=== PATIENT | female | born 1985 | race Caucasian/White ===

== ENCOUNTER → 2016-12-18 | Outpatient (CLI) | payer OTHER ==
[~2016-12-18] MED LIST: DOCU10ELUD PO; IBUP800T23 PO; IBUP80TA PO; LANOOIN21 TOP; MOM30SS PO; PRE-TAB3 PO; PRENTAB74 PO; TYLE167L PO
[2016-12-18 14:31] LABS: BASO % 0.2 % (0.0-1.0); EOS # 0.1 K/mm3 (0.0-0.50); EOS % 1.1 % (0.0-3.0); LARGE UNSTAINED CELL # 0.1 K/mm3 (0.0-0.4); LARGE UNSTAINED CELL % 1.1 % (0.0-4.0); LYMPH # 1.7 K/mm3 (1.5-4.5); LYMPH % 19.6 % (24.0-44.0); MEAN CORPUSCULAR HEMOGLOBIN 30.7 pg (27.0-33.0); MEAN CORPUSCULAR HGB CONC 34.2 g/dl (32.0-36.5); MEAN CORPUSCULAR VOLUME 89.7 fl (80.0-96.0); MONO # 0.3 K/mm3 (0.0-0.8); MONO % 2.9 % (0.0-5.0); NEUTROPHILS # 6.4 K/mm3 (1.8-7.7); NEUTROPHILS % 75.1 % (36.0-66.0); PLATELET COUNT, AUTOMATED 144 k/mm3 (150-450); WHITE BLOOD COUNT 8.5 K/mm3 (4.0-10.0)
== END ==
LOC: M LAB 12:18
PROVIDERS: ATTEND Obstetrics & Gynecology
DX: Z36 Encounter for antenatal screening of mother (principal); Z3A.00 Weeks of gestation of pregnancy not specified
CPT/HCPCS: 36415; 82950; 85025; 86850; 86901; J2790

== ENCOUNTER → 2016-12-29 | Outpatient (CLI) | payer OTHER | LOC: M LAB 09:00 | PROVIDERS: ATTEND Obstetrics & Gynecology | DX: Z34.82 Encounter for supervision of other normal pregnancy, second trimester (principal) ==

== ENCOUNTER → 2017-01-13 | Outpatient (CLI) | payer OTHER ==
[2017-01-13 13:16] LABS: MEAN CORPUSCULAR VOLUME 91.2 fl (80.0-96.0); RED CELL DISTRIBUTION WIDTH 13.6 % (11.5-14.5); WHITE BLOOD COUNT 10.9 K/mm3 (4.0-10.0)
[2017-01-13 14:23] LABS: ALT/SGPT 15 U/L (12-78); AST/SGOT 10 U/L (15-37); BILIRUBIN,TOTAL 0.4 MG/DL (0.2-1.0); CREATININE FOR GFR 0.47 MG/DL (0.55-1.02); GLOMERULAR FILTRATION RATE > 60.0 (>60); URIC ACID 2.7 MG/DL (2.6-6.0)
== END ==
LOC: M LAB 12:28
PROVIDERS: ATTEND Advanced Practice Midwife
DX: R03.0 Elevated blood-pressure reading, without diagnosis of hypertension (principal)

== ENCOUNTER → 2017-02-26 | Outpatient (REF) | payer OTHER | LOC: M LAB REF 16:29 | PROVIDERS: ATTEND Advanced Practice Midwife | DX: Z36 Encounter for antenatal screening of mother (principal); Z3A.00 Weeks of gestation of pregnancy not specified ==

== ENCOUNTER → 2017-02-28 | Outpatient (CLI) | payer OTHER ==
[2017-02-28 13:21] LABS: MEAN CORPUSCULAR HEMOGLOBIN 30.7 pg (27.0-33.0); MEAN CORPUSCULAR VOLUME 90.2 fl (80.0-96.0); RED CELL DISTRIBUTION WIDTH 13.5 % (11.5-14.5); WHITE BLOOD COUNT 11.5 K/mm3 (4.0-10.0)
[2017-02-28 13:39] LABS: ALT/SGPT 19 U/L (12-78); AST/SGOT 9 U/L (15-37); BILIRUBIN,TOTAL 0.4 MG/DL (0.2-1.0); CREATININE FOR GFR 0.44 MG/DL (0.55-1.02); GLOMERULAR FILTRATION RATE > 60.0 (>60); URIC ACID 3.1 MG/DL (2.6-6.0)
== END ==
LOC: M LAB 12:46
PROVIDERS: ATTEND Advanced Practice Midwife
DX: O13.3 Gestational [pregnancy-induced] hypertension without significant proteinuria, third trimester (principal); Z3A.00 Weeks of gestation of pregnancy not specified

== ENCOUNTER 2017-03-10 22:09 | Inpatient (IN) | payer OTHER ==
[~2017-03-10] VITALS: Ht 167.6 cm; Wt 89.0 kg
[2017-03-10] MEDS ORDERED: OXYTOCIN 30 UNITS IN 0.9% NaCl 500ML IV BAG (J2590) As Ordered ONE (22:41)
[2017-03-10] MEDS ORDERED: LR 1,000 ML IV SCH (23:08)
[2017-03-10 23:11] VITALS: BP 105/63
[2017-03-10] MEDS ORDERED: OXYTOCIN DRIP 30 UNITS in APPROPRIATE DILUENT 1 EA IV SCH (23:12)
[2017-03-10] MEDS ORDERED: MEASLES,MUMPS,RUBELLA VACCINE INJ (MMR-II) (90707) SC SCH (23:15)
[2017-03-10] MEDS ORDERED: DOCUSATE SODIUM 100 MG CAP PO PRN (23:15)
[2017-03-10] MEDS ORDERED: IBUPROFEN 800 MG TAB PO PRN (23:15)
[2017-03-10] MEDS ORDERED: ACETAMINOPHEN 500 MG TAB PO PRN (23:15)
[2017-03-10] MEDS ORDERED: RHOGAM 300 MCG (1500 IU) INJ (J2790) IM SCH (23:15)
[2017-03-10] MEDS ORDERED: METHYLERGONOVINE MALEATE 0.2 MG TAB PO PRN (23:15)
[2017-03-10] MEDS ORDERED: DIBUCAINE 1% OINTMENT 30GM TOP PRN (23:15)
[2017-03-10 23:27] VITALS: BP 101/58
[2017-03-10 23:42] VITALS: BP 94/61
[2017-03-10 23:57] VITALS: BP 99/62
[2017-03-11 00:27] LABS: MEAN CORPUSCULAR HEMOGLOBIN 30.6 pg (27.0-33.0); MEAN CORPUSCULAR HGB CONC 34.1 g/dl (32.0-36.5); MEAN CORPUSCULAR VOLUME 89.8 fl (80.0-96.0); RED CELL DISTRIBUTION WIDTH 13.6 % (11.5-14.5); WHITE BLOOD COUNT 12.6 K/mm3 (4.0-10.0)
[2017-03-11 01:00] VITALS: BP 99/62
[2017-03-11 01:05] VITALS: BP 118/66
[2017-03-11 06:14] VITALS: BP 123/62
[2017-03-11] MEDS: PRENATAL VITAMIN TAB PO SCH (09:31)
[2017-03-11 18:00] VITALS: BP 130/66
--- NOTE | 2017-03-11 18:24 | DN ---
DATE OF DELIVERY: 03/10/2017 A 31-year-old female, para 4-1-0-5, who is admitted at 38-3/7 weeks gestation in active labor. Immediately upon arrival to labor and delivery she had spontaneous rupture of membranes and had precipitous delivery and bed nurse control. She delivered a live male infant, scores 8 and 9, weight 7 pounds 4 ounces. Placenta delivered by ga spontaneously intact, 3-vessel cord. A first-degree midline perineal laceration noted with no active bleeding. Estimated blood loss 250 mL. Both mother and baby in stable condition.
--- NOTE | 2017-03-11 18:29 | HPE ---
DATE OF ADMISSION: 03/10/2017 Eunice is a 31-year-old female, 6, para 4-1-0-5, with an estimated date of confinement (EDC) of 03/20/2017, estimated gestational age (EGA) 38-3/7 weeks gestation who presented to labor and delivery with complaints of contractions. Upon evaluation in labor and delivery she was found to be in active labor, immediately upon arrival had spontaneous rupture of membranes. History of rapid labor with her last delivery. Her lab blood type is B+, rubella immune, hepatitis negative, HIV negative, GC/chlamydia was abnormal at 151. Her 3 hours GTT was within normal limits. Group B streptococcus (GBS) was negative. PAST MEDICAL HISTORY: Denies. PAST SURGICAL HISTORY: Denies. SOCIAL HISTORY: Denies any alcohol or drug use. REVIEW OF SYSTEMS: Unremarkable. MEDICATIONS: - vitamins ALLERGIES: No known drug allergies. PHYSICAL EXAMINATION: HEENT: Grossly within normal limits. ABDOMEN: Soft, nontender, nondistended. EXTREMITIES: No clubbing, cyanosis or edema. ASSESSMENT: Intrauterine at 38-3/7 weeks, labor with spontaneous rupture of membranes. PLAN: Admit. Orders. Routine labs sent. The patient had a precipitous delivery in bed, nurse control.
[2017-03-11 22:25] VITALS: BP 130/66
[2017-03-12 06:07] VITALS: BP 122/72
[2017-03-12] MEDS: PRENATAL VITAMIN TAB PO SCH (08:29)
[2017-03-12] MEDS ORDERED: ACET50TA PO (08:42)
[2017-03-12] MEDS ORDERED: IBUP-1114 PO (08:44)
== END 2017-03-12 11:30 | disposition home or self-care (01) | DRG 560 ==
LOC: M LDO 22:09 → M LDI 22:42 → M OBS 03-11 00:56
PROVIDERS: ADMIT Obstetrics & Gynecology; ATTEND Obstetrics & Gynecology
PROC: 10E0XZZ Delivery of Products of Conception, External Approach (ICD-10-PCS; principal; 2017-03-10)
DX: O62.3 Precipitate labor (principal); O70.0 First degree perineal laceration during delivery; Z37.0 Single live birth; Z3A.38 38 weeks gestation of pregnancy; Z79.899 Other long term (current) drug therapy

== ENCOUNTER → 2018-06-29 | Outpatient (REF) | payer OTHER ==
[2018-06-29 13:30] LABS: HEMATOCRIT 40.3 % (36.0-47.0); HEMOGLOBIN 13.8 g/dl (12.0-15.5); MEAN CORPUSCULAR HEMOGLOBIN 29.2 pg (27.0-33.0); MEAN CORPUSCULAR HGB CONC 34.2 g/dl (32.0-36.5); MEAN CORPUSCULAR VOLUME 85.2 fl (80.0-96.0); PLATELET COUNT, AUTOMATED 165 10^3/uL (150-450); RED BLOOD COUNT 4.73 10^6/uL (4.00-5.40); WHITE BLOOD COUNT 6.8 10^3/uL (4.0-10.0)
[2018-06-29 14:38] LABS: HCG, SERUM QUANTITATIVE 56586 MIU/ML
[2018-06-30 09:31] LABS: RUBELLA IgG QUALITATIVE IMMUNE (IMMUNE)
[2018-06-30 09:46] LABS: HBsAg Prenatal NEGATIVE (NEGATIVE)
[2018-06-30 10:05] LABS: HIV 1&2 SCREEN CENTAUR NEGATIVE (NEGATIVE)
[2018-06-30 10:05] LABS: HEPATITIS C VIRUS ABY INDEX 0.3 INDEX (<0.8)
== END ==
LOC: M LAB REF 13:05
DX: O36.80X0 Pregnancy with inconclusive fetal viability, not applicable or unspecified (principal)

== ENCOUNTER 2018-09-06 11:06 | Emergency (ER) | payer OTHER ==
[2018-09-06] MEDS: NS 1,000 ML IV ×2 (11:45→12:43)
[2018-09-06 12:05] LABS: BASO % 0.4 % (0.0-1.0); HEMATOCRIT 34.4 % (36.0-47.0); HEMOGLOBIN 11.8 g/dl (12.0-15.5); IMMATURE GRANULOCYTE % 1.4 % (0-3.0); LYMPH # 1.8 10^3/uL (1.5-4.5); LYMPH % 16.5 % (24.0-44.0); MEAN CORPUSCULAR HEMOGLOBIN 30.8 pg (27.0-33.0); MEAN CORPUSCULAR HGB CONC 34.3 g/dl (32.0-36.5); MEAN CORPUSCULAR VOLUME 89.8 fl (80.0-96.0); MONO # 0.6 10^3/uL (0.0-0.8); MONO % 5.2 % (0.0-5.0); NEUTROPHILS # 8.3 10^3/uL (1.8-7.7); NEUTROPHILS % 76.5 % (36.0-66.0); PLATELET COUNT, AUTOMATED 209 10^3/uL (150-450); RED BLOOD COUNT 3.83 10^6/uL (4.00-5.40); RED CELL DISTRIBUTION WIDTH 14.1 % (11.5-14.5); WHITE BLOOD COUNT 10.8 10^3/uL (4.0-10.0)
[2018-09-06 12:39] LABS: ALBUMIN 2.9 GM/DL (3.2-5.2); ALBUMIN/GLOBULIN RATIO 0.73 (1.00-1.93); ALKALINE PHOSPHATASE 137 U/L (45-117); ALT/SGPT 196 U/L (12-78); ANION GAP 8 MEQ/L (8-16); AST/SGOT 184 U/L (7-37); BILIRUBIN,DIRECT 2.4 MG/DL (0.0-0.2); BLOOD UREA NITROGEN 5 MG/DL (7-18); CARBON DIOXIDE LEVEL 26 MEQ/L (21-32); CHLORIDE LEVEL 104 MEQ/L (98-107); CREATININE FOR GFR 0.55 MG/DL (0.55-1.30); GLOMERULAR FILTRATION RATE > 60.0 (>60); GLUCOSE, FASTING 102 MG/DL (70-100); LIPASE 116 U/L (73-393); POTASSIUM SERUM 3.7 MEQ/L (3.5-5.1); SODIUM LEVEL 138 MEQ/L (136-145); TOTAL PROTEIN 6.9 GM/DL (6.4-8.2)
[2018-09-06] MEDS: PANTOPRAZOLE 40MG INJ (PROTONIX) (C9113) IV (12:43)
[2018-09-06] MEDS: METOCLOPRAMIDE INJ 10MG/2ML VIAL (J2765) IV (12:43)
[2018-09-06] MEDS: SUCRALFATE SUSP 1GM/10ML UD PO (12:43)
[2018-09-06 13:30] LABS: HEPATITIS B SURFACE ANTIGEN NEGATIVE (NEGATIVE)
[2018-09-06 13:57] LABS: HEPATITIS C VIRUS ABY INDEX < 0.0 INDEX (<0.8)
[2018-09-06 13:58] LABS: HEPATITIS B CORE ANTIBODY IGM NEGATIVE (NEGATIVE)
[2018-09-06 14:00] LABS: HEPATITIS A ANTIBODY IGM NEGATIVE (NEGATIVE)
[2018-09-06 14:20] LABS: KETONE, URINE AUTO RFX NEGATIVE (NEGATIVE); LEUKOCYTE ESTERASE UR AUTO RFX NEGATIVE (NEGATIVE); MUCUS, URINE RFX SMALL (NEGATIVE); NITRITE, URINE AUTO RFX NEGATIVE (NEGATIVE); RBC, URINE AUTO RFX 1 /HPF (0-3); SPECIFIC GRAVITY UR AUTO RFX 1.021 (1.002-1.035); SQUAM EPITHELIAL CELL UR AURFX 11 /HPF (0-6); WBC, URINE AUTO RFX 1 /HPF (0-3)
[2018-09-06] MEDS: KCL 20MEQ IN D5/0.45NS 1000ML 1,000 ML IV (18:03)
== END 2018-09-06 18:36 | disposition short-term general hospital (02) ==
LOC: M ED 11:06
DX: O99.612 Diseases of the digestive system complicating pregnancy, second trimester (principal); K83.8 Other specified diseases of biliary tract; R10.9 Unspecified abdominal pain; Z3A.23 23 weeks gestation of pregnancy; Z79.899 Other long term (current) drug therapy
CPT/HCPCS: C9113

== ENCOUNTER → 2018-09-10 | Outpatient (CLI) | payer OTHER ==
[2018-09-10 16:23] LABS: ALBUMIN 2.6 GM/DL (3.2-5.2); ALBUMIN/GLOBULIN RATIO 0.72 (1.00-1.93); ALKALINE PHOSPHATASE 170 U/L (45-117); ALT/SGPT 140 U/L (12-78); ANION GAP 8 MEQ/L (8-16); AST/SGOT 40 U/L (7-37); BILIRUBIN,DIRECT 1.7 MG/DL (0.0-0.2); BLOOD UREA NITROGEN 8 MG/DL (7-18); CALCIUM LEVEL 8.7 MG/DL (8.5-10.1); CARBON DIOXIDE LEVEL 27 MEQ/L (21-32); CHLORIDE LEVEL 107 MEQ/L (98-107); CREATININE FOR GFR 0.44 MG/DL (0.55-1.30); GLOMERULAR FILTRATION RATE > 60.0 (>60); GLUCOSE, FASTING 84 MG/DL (70-100); POTASSIUM SERUM 3.6 MEQ/L (3.5-5.1); SODIUM LEVEL 142 MEQ/L (136-145); TOTAL PROTEIN 6.2 GM/DL (6.4-8.2)
[2018-09-10 16:46] LABS: HEPATITIS B SURFACE ANTIGEN NEGATIVE (NEGATIVE)
[2018-09-10 17:12] LABS: HEPATITIS C VIRUS ABY INDEX < 0.0 INDEX (<0.8)
[2018-09-10 17:13] LABS: HEPATITIS B CORE ANTIBODY IGM NEGATIVE (NEGATIVE)
[2018-09-10 17:15] LABS: HEPATITIS A ANTIBODY IGM NEGATIVE (NEGATIVE)
== END ==
LOC: M LAB 15:27
DX: K80.70 Calculus of gallbladder and bile duct without cholecystitis without obstruction (principal)
CPT/HCPCS: 82248

== ENCOUNTER → 2018-10-18 | Outpatient (CLI) | payer OTHER ==
[2018-10-18 12:16] LABS: HEMATOCRIT 34.3 % (36.0-47.0); HEMOGLOBIN 11.6 g/dl (12.0-15.5); MEAN CORPUSCULAR HGB CONC 33.8 g/dl (32.0-36.5); MEAN CORPUSCULAR VOLUME 91.7 fl (80.0-96.0); PLATELET COUNT, AUTOMATED 139 10^3/uL (150-450); RED BLOOD COUNT 3.74 10^6/uL (4.00-5.40); RED CELL DISTRIBUTION WIDTH 13.3 % (11.5-14.5); WHITE BLOOD COUNT 10.1 10^3/uL (4.0-10.0)
[2018-10-18 12:45] LABS: GLUCOSE CHALLENGE TEST 1 HOUR 143 MG/DL (LESS THAN 140)
== END ==
LOC: M LAB 10:46
DX: Z34.82 Encounter for supervision of other normal pregnancy, second trimester (principal); Z3A.00 Weeks of gestation of pregnancy not specified
CPT/HCPCS: 82950

== ENCOUNTER → 2018-10-19 | Outpatient (REF) | payer OTHER ==
[2018-10-19 14:03] LABS: ALBUMIN 3.1 GM/DL (3.2-5.2); ALBUMIN/GLOBULIN RATIO 0.97 (1.00-1.93); ALKALINE PHOSPHATASE 71 U/L (45-117); ALT/SGPT 14 U/L (12-78); ANION GAP 8 MEQ/L (8-16); AST/SGOT 7 U/L (7-37); BILIRUBIN,TOTAL 0.3 MG/DL (0.2-1.0); BLOOD UREA NITROGEN 5 MG/DL (7-18); CALCIUM LEVEL 8.6 MG/DL (8.5-10.1); CARBON DIOXIDE LEVEL 25 MEQ/L (21-32); CHLORIDE LEVEL 109 MEQ/L (98-107); CREATININE FOR GFR 0.44 MG/DL (0.55-1.30); GLOMERULAR FILTRATION RATE > 60.0 (>60); GLUCOSE, FASTING 84 MG/DL (70-100); POTASSIUM SERUM 4.3 MEQ/L (3.5-5.1); SODIUM LEVEL 142 MEQ/L (136-145); TOTAL PROTEIN 6.3 GM/DL (6.4-8.2); URIC ACID 2.5 MG/DL (2.6-6.0)
== END ==
LOC: M LAB REF 13:09
DX: O26.613 Liver and biliary tract disorders in pregnancy, third trimester (principal)
CPT/HCPCS: 84550

== ENCOUNTER → 2018-10-25 | Outpatient (CLI) | payer OTHER ==
[2018-10-25 09:39] LABS: GLUCOSE, FASTING 85 MG/DL (LESS THAN 95)
[2018-10-25 10:26] LABS: 1 HR GLUCOSE 180 MG/DL (LESS THAN 180)
[2018-10-25 11:03] LABS: 2 HR GLUCOSE 156 MG/DL (LESS THAN 155)
[2018-10-25 12:44] LABS: 3 HR GLUCOSE 50 MG/DL (LESS THAN 140)
== END ==
LOC: M LAB 08:03
DX: Z34.82 Encounter for supervision of other normal pregnancy, second trimester (principal); R73.02 Impaired glucose tolerance (oral); Z3A.00 Weeks of gestation of pregnancy not specified
CPT/HCPCS: 82951

== ENCOUNTER → 2018-12-09 | Outpatient (REF) | payer OTHER ==
[~2018-12-09] MED LIST changes: +IBUP-1114 PO; +IBUP1TAB7 PO; -IBUP800T23 PO; +MAPA500T2 PO; +ONDA4TAB6
== END ==
LOC: M LAB REF 13:06
PROVIDERS: ATTEND Obstetrics & Gynecology
DX: Z34.83 Encounter for supervision of other normal pregnancy, third trimester (principal)

== ENCOUNTER 2019-01-06 03:43 | Inpatient (IN) | payer OTHER ==
[~2019-01-06] VITALS: Ht 167.6 cm; Wt 96.2 kg
[2019-01-06] VITALS (10 sets, daily range): BP systolic 104–131; BP diastolic 55–74
[2019-01-06] MEDS ORDERED: LR 1,000 ML IV SCH (04:04)
[2019-01-06 04:39] LABS: HEMATOCRIT 36.1 % (36.0-47.0); HEMOGLOBIN 12.1 g/dl (12.0-15.5); MEAN CORPUSCULAR HGB CONC 33.5 g/dl (32.0-36.5); MEAN CORPUSCULAR VOLUME 86.6 fl (80.0-96.0); PLATELET COUNT, AUTOMATED 145 10^3/uL (150-450); RED BLOOD COUNT 4.17 10^6/uL (4.00-5.40); WHITE BLOOD COUNT 10.5 10^3/uL (4.0-10.0)
[2019-01-06 05:01] LABS: ALBUMIN 2.9 GM/DL (3.2-5.2); ALT/SGPT 9 U/L (12-78); BILIRUBIN,TOTAL 0.4 MG/DL (0.2-1.0); BLOOD UREA NITROGEN 8 MG/DL (7-18); CALCIUM LEVEL 8.2 MG/DL (8.5-10.1); CARBON DIOXIDE LEVEL 21 MEQ/L (21-32); CHLORIDE LEVEL 106 MEQ/L (98-107); CREATININE FOR GFR 0.46 MG/DL (0.55-1.30); GLOMERULAR FILTRATION RATE > 60.0 (>60); GLUCOSE, FASTING 93 MG/DL (70-100); POTASSIUM SERUM 3.9 MEQ/L (3.5-5.1); SODIUM LEVEL 137 MEQ/L (136-145); TOTAL PROTEIN 6.8 GM/DL (6.4-8.2); URIC ACID 2.7 MG/DL (2.6-6.0)
[2019-01-06] MEDS ORDERED: OXYTOCIN 30 UNITS IN 0.9% NaCl 500ML IV BAG (J2590) As Ordered ONE (05:08)
[2019-01-06] MEDS ORDERED: OXYTOCIN DRIP 30 UNITS in APPROPRIATE DILUENT 1 EA IV SCH ×2 (06:27→09:00)
[2019-01-06] MEDS ORDERED: METHYLERGONOVINE MALEATE 0.2 MG TAB PO PRN (06:30)
[2019-01-06] MEDS ORDERED: MEASLES,MUMPS,RUBELLA VACCINE INJ (MMR-II) (90707) SC SCH (06:30)
[2019-01-06] MEDS ORDERED: DOCUSATE SODIUM 100 MG CAP PO PRN (06:30)
[2019-01-06] MEDS ORDERED: ACETAMINOPHEN 500 MG TAB PO PRN (06:30)
[2019-01-06] MEDS ORDERED: DIBUCAINE 1% OINTMENT 30GM TOP PRN (06:30)
[2019-01-06] MEDS ORDERED: IBUPROFEN 800 MG TAB PO PRN (06:30)
[2019-01-06] MEDS ORDERED: RHOGAM 300 MCG (1500 IU) INJ (J2790) IM SCH (06:30)
[2019-01-06 06:35] LABS: CORD GAS ABE A -7.1; CORD GAS HCO3 A 20.1 MEQ/L; CORD GAS O2 SAT A 37.1 %; CORD GAS PH A 7.25 UNITS; CORD GAS PO2 A 20.5 mmHg; CORD GAS SBC A 17.4 MEQ/L; CORD GAS TCO2 A 21.6 MEQ/L
[2019-01-06 06:38] LABS: CORD GAS ABE V -5.1; CORD GAS HCO3 V 20.4 MEQ/L; CORD GAS PCO2 V 39.9 mmHg; CORD GAS PH V 7.327 UNITS; CORD GAS TCO2 V 21.6 MEQ/L
[2019-01-06] MEDS: PRENATAL VITAMINS CHEWABLE TABLET PO SCH (08:41)
--- NOTE | 2019-01-06 11:22 | HPE ---
DATE OF ADMISSION: 01/06/2019 Eunice is a 33-year-old female 8, para 6-1-0-7 with an estimated date of confinement (EDC) of 01/17/2019, estimated gestational age (EGA) 39-6/7 weeks gestation with a history of rapid delivery who presented to labor and delivery with complaints of contractions every 4-5 minutes. Upon evaluation she was found to be in labor. At this point, a decision was made for admission. Her record was reviewed, which was essentially unremarkable. The patient did have a history of obstructive jaundice earlier on, around 28-weeks in her for which she was seen at the Center. She also has a history of thrombocytopenia with stable platelet counts. LABS: Blood type is B negative. Rubella immune. Hepatitis negative. HIV negative. GC and chlamydia negative. One hour sugar testing was within normal limits. Her Group B Streptococcus (GBS) is negative. PAST MEDICAL HISTORY: Significant for: Jaundice. Gestational thrombocytopenia. PAST SURGICAL HISTORY: Denies. SOCIAL HISTORY: She is . Denies any alcohol, drug or cigarette smoking. REVIEW OF SYSTEMS: Unremarkable. MEDICATIONS - vitamins ALLERGIES: No known drug allergies. PHYSICAL EXAMINATION: Mildly obese female in no acute distress. Abdomen soft, nontender, nondistended. Extremities no clubbing, cyanosis or edema. Vaginal exam is 5 cm, 70%, fetus at 0 station with a bulging membrane. Tracing reviewed, category 1 tracing. Contractions every 4-5 minutes. ASSESSMENT: 1. Intrauterine at 39-6/7 weeks gestation, in labor. 2. History of precipitous delivery. PLAN: Admit to labor and delivery. Routine labs sent. Awaiting delivery.
--- NOTE | 2019-01-06 15:38 | DN ---
DATE OF DELIVERY: 01/06/2019 DELIVERY NOTE: Eunice is a 33-year-old female, 8, para 6-1-0-6, is admitted at 39-6/7 weeks gestation in active labor. She progressed quickly to fully dilated, delivered a live female infant after three pushes over an intact perineum with a nuchal cord times one. 9/9. weight 7 pounds 5 ounces. Placenta delivered spontaneously intact. Three-vessel cord. Perineum, vagina and cervix inspected. No laceration noted. Estimated blood loss 300 mL. Both mother and baby in stable condition.
[2019-01-07 06:16] VITALS: BP 101/55
[2019-01-07] MEDS: PRENATAL VITAMINS CHEWABLE TABLET PO SCH (09:25)
[2019-01-07] MEDS ORDERED: MAPA500T2 PO (10:24)
[2019-01-07] MEDS ORDERED: IBUP-1114 PO (10:24)
== END 2019-01-07 11:35 | disposition home or self-care (01) | DRG 560 ==
LOC: M LDO 03:43 → M LDI 04:17 → M OBS 11:13
PROVIDERS: ADMIT Obstetrics & Gynecology; ATTEND Obstetrics & Gynecology
PROC: 10E0XZZ Delivery of Products of Conception, External Approach (ICD-10-PCS; principal; 2019-01-06)
DX: O69.81X0 Labor and delivery complicated by cord around neck, without compression, not applicable or unspecified (principal); Z37.0 Single live birth; Z3A.39 39 weeks gestation of pregnancy

== ENCOUNTER → 2019-02-10 | Outpatient (CLI) | payer MEDICAID, OTHER ==
[2019-02-10 16:57] LABS: ALBUMIN 3.8 GM/DL (3.2-5.2); ALT/SGPT 25 U/L (12-78); BILIRUBIN,DIRECT < 0.1 MG/DL (0.0-0.2); BILIRUBIN,TOTAL 0.3 MG/DL (0.2-1.0); TOTAL PROTEIN 7.3 GM/DL (6.4-8.2)
== END ==
LOC: M LAB 15:25
PROVIDERS: ATTEND Internal Medicine Gastroenterology
DX: K80.50 Calculus of bile duct without cholangitis or cholecystitis without obstruction (principal)

== ENCOUNTER → 2019-02-24 | Outpatient (CLI) | payer MEDICAID ==
[2019-02-24 15:55] LABS: HEMATOCRIT 38.6 % (36.0-47.0); HEMOGLOBIN 12.7 g/dl (12.0-15.5); MEAN CORPUSCULAR HEMOGLOBIN 28.2 pg (27.0-33.0); MEAN CORPUSCULAR HGB CONC 32.9 g/dl (32.0-36.5); MEAN CORPUSCULAR VOLUME 85.8 fl (80.0-96.0); PLATELET COUNT, AUTOMATED 190 10^3/uL (150-450); WHITE BLOOD COUNT 7.2 10^3/uL (4.0-10.0)
[2019-02-24 16:10] LABS: INR 0.92; PARTIAL THROMBOPLASTIN TIME 27.9 SECONDS (25.4-37.6); PROTHROMBIN TIME 12.5 SECONDS (12.1-14.4)
== END ==
LOC: M LAB 15:15
PROVIDERS: ATTEND Internal Medicine Gastroenterology
DX: K80.50 Calculus of bile duct without cholangitis or cholecystitis without obstruction (principal)

== ENCOUNTER → 2019-03-31 | Outpatient (CLI) | payer MEDICAID ==
[~2019-03-31] MED LIST changes: -DOCU10ELUD PO; +DOCU5LIQ PO
[2019-03-31 16:05] LABS: BILIRUBIN,DIRECT 0.1 MG/DL (0.0-0.2); BILIRUBIN,TOTAL 0.4 MG/DL (0.2-1.0); TOTAL PROTEIN 7.3 GM/DL (6.4-8.2)
== END ==
LOC: M LAB 15:04
PROVIDERS: ATTEND Internal Medicine Gastroenterology
DX: K80.50 Calculus of bile duct without cholangitis or cholecystitis without obstruction (principal)